=== PATIENT | male | born 1980 | race Caucasian/White ===

== ENCOUNTER 2016-11-24 17:16 | Emergency (ER) | payer SELFPAY ==
[~2016-11-24] VITALS: Ht 162.6 cm; Wt 81.6 kg
[2016-11-24 21:09] VITALS: BP 136/87
== END 2016-11-24 20:54 | disposition home or self-care (01) ==
LOC: ED 17:16
DX: Z53.21 Procedure and treatment not carried out due to patient leaving prior to being seen by health care provider (principal)